=== PATIENT | female | born 1965 | race Caucasian/White ===

== ENCOUNTER 2016-06-09 10:23 | Emergency (ER) | payer OTHER ==
[2016-06-09 10:52] VITALS: BP 144/100
--- NOTE | 2016-06-09 11:46 | UC ---
UC General HPI - HPI Summary HPI Summary: 51 y/o female c/o right sided ear pain and decreased hearing, cough with frothy foul smelling sputum, fatigue, diarrhea with watery stools occurring at least once an hour. - History of Current Complaint Chief Complaint: UCRespiratory Stated Complaint: SORE THROAT CONGESTION VOMITING DIARRHEA Time Seen by Provider: 06/09/16 11:29 Hx Obtained From: Patient Onset/Duration: Gradual Onset Associated Signs & Symptoms: Positive: Diarrhea. Negative: Abdominal Pain, Fever, Headache - Allergy/Home Medications Allergies/Adverse Reactions: Allergies Allergy/AdvReac Type Severity Reaction Status Date / Time Varenicline [From Chantix] Allergy Anaphylatic Verified 06/09/16 10:52 Shock PMH/Surg Hx/FS Hx/Imm Hx Previously Healthy: Yes Endocrine History Of: Denies: Diabetes, Thyroid Disease Cardiovascular History Of: Reports: Hypertension Denies: Cardiac Disorders, Pacemaker/ICD Respiratory History Of: Denies: COPD, Asthma GI/ History Of: Denies: Gastroesophageal Reflux, Ulcer, Renal Disease Neurological History Of: Denies: CVA, Dementia, Seizures Psychological History Of: Reports: Depression Cancer History Of: Denies: Breast Cancer Other History Of: Negative For: Anticoagulant Therapy - Surgical History Surgical History: Yes Surgery Procedure, Year, and Place: tubal ligation 1995 - Family History Known Family History: Positive: Other - positive for depression - Social History Occupation: Employed Full-time Lives: With Family Alcohol Use: Rare Alcohol Amount: hx etoh, drank 3 beers today Substance Use Type: Sedatives Substance Use Comment - Amount & Last Used: unknown amt of ativan, trazodone, and klonipin Smoking Status (MU): Current Every Day Smoker Type: Cigarettes Amount Used/How Often: 1 PPD Have You Smoked in the Last Year: Yes - current smoker, smoked in last 7 days Household Exposure Type: Cigarettes - Immunization History Most Recent Influenza Vaccination: unable to recall Most Recent Tetanus Shot: unable to recall Most Recent Pneumonia Vaccination: NA Review of Systems Constitutional: Fatigue Skin: Negative Eyes: Other - Right ear discomfort ENT: Sore Throat - r/t post-nasal drip, Ear Ache - Right side, Nasal Discharge Respiratory: Cough Cardiovascular: Negative Gastrointestinal: Diarrhea - Watery stools experiencing at least once an hour Genitourinary: Negative Motor: Negative Neurovascular: Negative Musculoskeletal: Negative Neurological: Negative Psychological: Negative All Other Systems Reviewed And Are Negative: Yes Physical Exam Triage Information Reviewed: Yes Appearance: Well-Appearing, No Pain Distress, Well-Nourished Vital Signs: Initial Vital Signs Temp 98.0 F 06/09/16 10:45 Pulse 80 06/09/16 10:45 Resp 20 06/09/16 10:45 BP 144/100 06/09/16 10:45 Pulse Ox 100 06/09/16 10:45 Vital Signs Reviewed: Yes Eye Exam: Normal Eyes: Positive: Conjunctiva Clear ENT: Positive: Pharynx normal, Nasal drainage, TMs normal - Scarring on the right TM, Other: - MM dry. Negative: Nasal congestion Dental Exam: Normal Dental: Negative: Cervical Lymphadenopathy Neck: Positive: Supple, Nontender, No Lymphadenopathy Respiratory: Positive: Chest non-tender, Lungs clear, Normal breath sounds, No respiratory distress, No accessory muscle use Cardiovascular: Positive: RRR, No Murmur, Pulses Normal Abdominal Exam: Normal Abdomen Description: Positive: Nontender Bowel Sounds: Positive: Hyperactive Musculoskeletal: Positive: Strength Intact, ROM Intact Neurological: Positive: Alert, Muscle Tone Normal Psychological Exam: Normal Skin Exam: Normal Course/Dx - Differential Dx - Multi-Symptom Provider Diagnoses: Upper respiratory infection. Diarrhea. dehydration Discharge - Discharge Plan Condition: Stable Disposition: HOME Patient Education Materials: Upper Respiratory Infection (ED) Forms: *Work Release Referrals: [facility] [facility] [Outside] Ruben Lopez MD [Primary Care Provider] - 4 Days Additional Instructions: Follow up with Primary care provider by the end of the week for symptom check Collect stool kit for examination
== END 2016-06-09 12:15 | disposition home or self-care (01) ==
LOC: UCEAST 10:23
DX: J06.9 Acute upper respiratory infection, unspecified (principal); R19.7 Diarrhea, unspecified; E86.0 Dehydration; Z88.8 Allergy status to other drugs, medicaments and biological substances; F17.210 Nicotine dependence, cigarettes, uncomplicated
CPT/HCPCS: 99211; G0463

== ENCOUNTER 2017-06-16 19:17 | Emergency (ER) | payer OTHER ==
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
--- OUTSIDE RECORDS SUMMARY | 2017-06-16 20:04 | XMS REPORT ---
:1965 External Reference #:[id number] Author Organization [facility] Address [address] [place] [address] Phone [phone] Care Team Providers Name Role Phone Josephine Reagan M.D. 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 Primary Care Physician Unavailable Payers Type Date Identification Numbers Payment Provider Subscriber Medicaid Policy Number: [id number] [facility] Silvia Greer PayID: [id number] [address] [address] [place] [address] Problems Date Description Provider Status Onset: 05/21/2017 [...] Reaction Status Severity Comments 05/21/2017 Prednisone active 06/16/2017 Varenicline heart palpitations active Medications Medication Date Status Form Strength Qnty SIG Indications Ordering Provider Doxycycline 06/16/ Active Tablets 100mg 20tabs 1 by mouth R05 Deanna Hyclate 2018 twice a [facility], 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 Oxybutynin 05/21/ Active Tablets ER 5mg 30tabs 1 by mouth Josephine Chloride ER 2018 24HR every day [place], with 10mg M.D. tab Butalbital/As 05/21/ Active Capsules 50-325-40- 60caps 1 tab Josephine pirin/Caffein 2018 30mg twice a [place], e/Codeine day as M.D. needed for headache mdd 2 Effexor XR / Active Caps ER 150mg 2 by mouth Unknown 0000 24HR every day Trazodone HCL / Active Tablets 100mg take 2 Unknown 0000 tablets by mouth at bedtime Seroquel / Active Tablets 25mg take 1 Unknown 0000 [...] 90tabs 1 by mouth Josephine Chloride ER 2018 - 24HR twice a [place], 05/21/ day M.D. 2018 Vital Signs Date Vital Result Comment 06/16/2017 BP Systolic 126 mmHg BP Diastolic 78 mmHg Heart Rate 72 /min Body Temperature 96.6 F Respiratory Rate 16 /min Height 63.5 inches 5'3.50" Weight 130.50 lb BMI (Body Mass Index) 22.8 kg/m2 05/21/2017 BP Systolic 118 mmHg BP Diastolic 72 mmHg Heart Rate 80 /min Body Temperature 98.1 F Respiratory Rate 16 /min Height 63.5 inches 5'3.50" Weight 129.00 lb BMI (Body Mass Index) 22.5 kg/m2 Results Test Date Test Result H/L Range Note CBC Electronic ([facility] New) 06/16/2017 WBC 12.89 High 4.0-10.0 RBC 4.34 3.93-6.0 Hemoglobin ([facility]/CTX) 14.6 g/dL 12.0-17.0 Hematocrit ([facility]) 41.9 % 35.0-50.0 Mean Corpuscular Vol 96.5 fL High 80-95 Mean Corpuscular Hemoglobin 33.6 pg High 25.6-32.2 Mean Corpuscular Hemo Concen 34.8 g/dL 32.2-36.0 Platelets 350 10^3/ul 163-400 RDW-CV 13.0 11.6-14.4 Mean Platelet Volume 9.0 fL Low 9.4-12.4 Absolute Neutrophils BLD 6.72 High 1.56-6.13 Absolute Lymphocytes 4.38 High 1.18-3.74 Absolute Monocytes BLD Auto 1.33 High 0.24-0.82 Absolute Eos Blood 0.39 0.04-0.54 Absolute Basophils 0.03 0.01-0.08 Neutrophil % 52.2 34.0-70.0 Lymph% 34.0 % 20.0-52.0 Monocytes % 10.3 % 5.0-12.0 Eos % 3.0 % 0.7-7.0 Basophil% 0.2 % 0.1-1.2 Comprehensive Metabolic Prof 05/21/2017 Sodium 127 mEq/L Low 134-149 1 Potassium 4.4 mEq/L 3.6-5.5 Chloride 94 mEq/L 94-112 Carbon Dioxide 29 mEq/L 21-32 Glucose 104 mg/dL 70-105 BUN 5 mg/dL Low 6-26 2 Creatinine 0.6 mg/dL 0.6-1.4 BUN/Creat Ratio 8.3 CALC 8.0-36.0 Calcium 10.0 mg/dL 8.6-10.2 Total Protein 6.9 g/dL 6.4-8.3 Albumin 4.4 g/dL 3.8-5.5 Globulin 2.5 g/dL 2.0-4.8 A/G Ratio 1.8 CALC 0.6-2.3 Alk. Phosphatase 82 U/L 30-110 Alt (SGPT) 19 U/L 7-35 Ast (Sgot) 16 U/L 5-34 Total Bilirubin 0.3 mg/dL 0.2-1.3 GFR Non- >60 ml/min/1.73m^ >=60 GFR >60 ml/min/1.73m^ >=60 Lipid Profile 05/21/2017 Cholesterol 256 mg/dL High 120-200 Triglycerides 93 mg/dL 30-200 HDL Cholesterol 65 mg/dL 30-85 LDL (Calculated) 172 CALC High 0-129 VLDL Cholesterol 19 mg/dL 0-50 HDL Risk Factor 3.9 CALC 0.0-4.4 Laboratory test finding 05/21/2017 TSH 1.59 mIU/L 0.50-6.00 Vitamin B-12 344 pg/mL 230-1050 Vitamin D25 20 Low 30-100 CBC Electronic a 05/21/2017 WBC 11.4 x10^3/UL High 4.0-10.0 RBC 4.25 x10^6/UL 3.93-6.00 HGB 13.9 g/dL 12.0-17.0 HCT 40 % 35-50 MCV 94.8 fL 80.0-95.0 MCH 32.7 pg High 25.6-32.2 MCHC 34.5 g/dL 32.2-36.0 RDW-CV 12.8 % 11.6-14.4 PLT 354 x10^3/UL 163-400 MPV 9.3 fL Low 9.4-12.4 Connor# 7.47 x10^3/UL High 1.56-6.13 Lymph# 2.81 x10^3/UL 1.18-3.74 Dolores# 0.70 x10^3/UL 0.24-0.82 Eos # 0.4 x10^3/UL 0.0-0.5 Baso # 0.02 x10^3/UL 0.01-0.08 Connor% 65.3 % 34.0-70.0 Lymph % 24.6 % 20.0-52.0 Dolores% 6.1 % 5.0-12.0 Eos% 3.8 % 0.7-7.0 Baso% 0.2 % 0.1-1.2 Ua - Non Micro ([facility]) 05/21/2017 Appearance clear Color yellow Glucose, Urine ([facility]) neg Bilirubin neg Ketones neg SP Grav <1.005 Blood neg PH 6.5 Protein neg Urobil 0.2 Nitrite neg Leukocytes ([facility]) neg 1 RESULTS VERIFIED BY REPEAT ANALYSIS 2 RESULTS VERIFIED BY REPEAT ANALYSIS Procedures Date CPT Code Description Status 03/30/2016 Colonoscopy Completed Encounters Type Date Location Provider CPT E/M Dx Office Visit 05/21/2017 10:40a Main Office Josephine Reagan M.D. [id number] Z00.00 F43.10 N39.3 I10 E78.5 M25.549 G43.009 M79.1 Plan of Care Future Appointment(s):06/23/2017 9:00 am - BRADEN Constantino at [facility] Oztpxj6508/20/2017 8:20 am - Josephine Reagan M.D. at Main Klgnlk0406/16/2017 - VELMA ConstantinoPR05 CoughNew Medication:Doxycycline Hyclate 100 mgR53.81 Other malaiseComments:The patient was instructed to call or return to the office if there was no improvement .R68.83 Chills (without fever)AllComments:~B_ ~U_Medication Management~b_~u_ Patient Understands medications he 's taking? Yes No Are there Barriers to Adherence? Yes No Has the patient been asked about herbal supplements and therapies, and OTC meds? Yes No ~B_~U_Care Plan~b_~u_1. Patient has been queried aboutpatient's goals/ preferences and functional/lifestyle goals at relevant visits. If relevant, describe: feel better2. Treatment goals as explained to the patient: above3. Are there barriers to meetingtreatment goals? Yes No If Yes, please describe:4. Self-Management goals as described to the patient: Yes No
[2017-06-16 20:07] LABS: ABS Basophils 0.1 10^3/ul (0-0.2); ABS Eosinophils 0.3 10^3/ul (0-0.6); ABS Lymphocytes 2.7 10^3/ul (1.0-4.8); ABS Monocytes 0.4 10^3/ul (0-0.8); ABS Nucleated RBC 0 10^3/ul; Eosinophil % 2.3 % (0-6); Hematocrit 42 % (35-47); Hemoglobin 14.2 g/dl (12.0-16.0); Lymphocyte % 23.5 % (25-47); Mean Corpuscular HGB Conc 34 g/dl (31-36); Mean Corpuscular Hemoglobin 33 pg (27-31); Mean Corpuscular Volume 98 fL (80-97); Mean Platelet Volume 7 um3 (7.4-10.4); Nucleated Red Blood Cells % 0; Platelet Count 295 10^3/ul (150-450); Red Blood Count 4.27 10^6/ul (4.0-5.4); Red Cell Distribution Width 14 % (10.5-15); White Blood Count 11.5 10^3/ul (3.5-10.8)
[2017-06-16 20:25] LABS: EGFR Non-African American 123.4 (>60)
[2017-06-16 21:19] LABS: Urine Appearance Clear; Urine Blood Negative (Negative); Urine Color Colorless; Urine Ketones Negative (Negative); Urine Protein Negative (Negative); Urine Specific Gravity 1.001 (1.010-1.030); Urine Urobilinogen Negative (Negative)
[2017-06-16] MEDS ORDERED: NS 0.9% 1000 ML* 1,000 ML IV ONE (22:37)
[2017-06-16] MEDS ORDERED: Potassium Chlor TAB* 20 MEQ TAB.ER PO ONE (22:40)
[2017-06-16 22:49] VITALS: BP 108/78
--- NOTE | 2017-06-16 22:56 | ED ---
Syncope/Near Syncope - HPI Summary HPI Summary: 30th erythema present to the ED brought in by ambulance accompanied by daughter with complaints of being diagnosed with pneumonia earlier at her primary care doctor office and then having an episode of syncope while at home. Syncope was witnessed by her daughter who caught her before hitting the floor. Syncopal episode lasted a couple of seconds. Patient was sitting and got up to go to the bathroom. Denies any headache chest pain or trouble breathing. Has been short of breath with coughing due to patient's illness that has been ongoing for the past 2 weeks. Admits to fever chills intermittently. Denies any nausea vomiting by pain. Has not taken any medications today. Admits to cigarette use. Did have some alcohol prior to syncopal episode. Denies other drug use. - History Of Current Complaint Chief Complaint: EDSyncope Time Seen by Provider: 06/16/17 19:30 Hx Obtained From: Patient Onset/Duration: Sudden Onset, Lasting Minutes, Resolved Timing: Constant Context: Witnessed Activity At Onset: Exertion - Sitting to standing Associated Head Trauma: No Aggravating Factor(s): Nothing Alleviating Factor(s): Spontaneous Resolution Associated Signs And Symptoms: Negative - Allergies/Home Medications Allergies/Adverse Reactions: Allergies Allergy/AdvReac Type Severity Reaction Status Date / Time prednisone Allergy Blisters Verified 06/16/17 19:26 [email or web address] [From Chantix] Allergy Palpitation Verified 06/16/17 20:31 s Home Medications: Home Medications QUEtiapine TAB* [SEROquel TAB*] 150 mg PO BEDTIME 06/16/17 [History Confirmed ] PMH/Surg Hx/FS Hx/Imm Hx Endocrine/Hematology History: Denies: Hx Anticoagulant Therapy, Hx Diabetes, Hx Thyroid Disease Cardiovascular History: Reports: Hx Hypertension Denies: Hx Pacemaker/ICD Respiratory History: Denies: Hx Asthma, Hx Chronic Obstructive Pulmonary Disease (COPD) GI History: Denies: Hx Ulcer History: Denies: Hx Renal Disease Musculoskeletal History: Denies: Hx Osteoporosis Neurological History: Denies: Hx Dementia, Hx Seizures Psychiatric History: Reports: Hx Depression Denies: Hx of Violent Episodes Against Others, Hx Substance Abuse - Surgical History Surgery Procedure, Year, and Place: tubal ligation 1995 - Immunization History Date of Tetanus Vaccine: UNKNOWN Date of Influenza Vaccine: NONE Immunizations Up to Date: Yes Infectious Disease History: No Infectious Disease History: Denies: Hx Hepatitis, Hx Human Immunodeficiency Virus (HIV), Traveled Outside the [place] in Last 30 Days - Family History Known Family History: Positive: Other - positive for depression - Social History Alcohol Use: Daily Alcohol Amount: 2-3 of the "tall beers" Hx Substance Use: No Substance 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 Substance Use Comment - Amount & Last Used: unknown amt of ativan, trazodone, and klonipin Hx Tobacco Use: Yes Smoking Status (MU): Heavy Every Day Tobacco Smoker Type: Cigarettes Amount Used/How Often: 1 PPD Have You Smoked in the Last Year: Yes - current smoker, smoked in last 7 days Review of Systems Positive: Fever, Chills, Fatigue Cardiovascular: Negative Positive: Shortness Of Breath, Cough Gastrointestinal: Negative Musculoskeletal: Negative Skin: Negative Neurological: Negative All Other Systems Reviewed And Are Negative: Yes Physical Exam Triage Information Reviewed: Yes Vital Signs On Initial Exam: Initial Vitals Temp Pulse Resp BP Pulse Ox 97.3 F 82 16 131/88 97 06/16/17 19:24 06/16/17 19:24 06/16/17 19:24 06/16/17 19:24 06/16/17 19:24 Vital Signs Reviewed: Yes Appearance: Positive: No Pain Distress, Well-Nourished, Ill-Appearing Skin: Positive: Warm, Skin Color Reflects Adequate Perfusion, Dry. Negative: Cold, Numb, Cyanosis @, Jaundiced, Pale, Erythema @ Head/Face: Positive: Normal Head/Face Inspection. Negative: Scalp Eyes: Positive: Normal, EOMI, RENAE, Conjunctiva Clear ENT: Positive: Normal ENT inspection, Hearing grossly normal, Pharynx normal, TMs normal, Uvula midline. Negative: Nasal congestion, Nasal drainage, Tonsillar swelling, Tonsillar exudate Neck: Positive: Supple, Nontender, No Lymphadenopathy Respiratory/Lung Sounds: Positive: Clear to Auscultation, Breath Sounds Present , Decreased Breath Sounds - diffuse, Wheezes - diffuse. Negative: Rales, Rhonchi Cardiovascular: Positive: Normal, RRR, Pulses are Symmetrical in both Upper and Lower Extremities. Negative: Murmur, Rub Abdomen Description: Positive: Nontender, Soft Bowel Sounds: Positive: Present Musculoskeletal: Positive: Normal, Strength/ROM Intact Neurological: Positive: Normal, Sensory/Motor Intact, Alert, Oriented to Person Place, Time, NV Bundle Intact Distally, Normal Gait Diagnostics - Vital Signs Vital Signs Temp Pulse Resp BP Pulse Ox 06/16/17 22:30 97 18 108/78 95 06/16/17 22:06 94 18 114/78 96 06/16/17 22:00 81 15 87/56 94 06/16/17 21:41 102 18 113/63 94 06/16/17 21:31 99 19 95 06/16/17 21:03 85 15 93/65 95 06/16/17 21:00 84 5 86/56 95 06/16/17 20:30 79 15 101/61 97 06/16/17 20:02 80 16 100/58 96 06/16/17 20:00 78 14 95 06/16/17 19:30 79 15 118/83 95 06/16/17 19:28 80 97 06/16/17 19:26 131/88 06/16/17 19:24 97.3 F 82 16 131/88 97 - Laboratory Lab Results: Lab Results 06/16/17 06/16/17 06/16/17 Range/Units 20:00 20:00 20:00 WBC 11.5 H (3.5-10.8) 10^3/ul RBC 4.27 (4.0-5.4) 10^6/ul Hgb 14.2 (12.0-16.0) g/dl Hct 42 (35-47) % MCV 98 H (80-97) fL MCH 33 H (27-31) pg MCHC 34 (31-36) g/dl RDW 14 (10.5-15) % Plt Count 295 (150-450) 10^3/ul MPV 7 L (7.4-10.4) um3 Neut % (Auto) 69.7 (38-83) % Lymph % (Auto) 23.5 L (25-47) % [place] % (Auto) 3.8 (0-7) % Eos % (Auto) 2.3 (0-6) % Baso % (Auto) 0.7 (0-2) % Absolute Neuts (auto) 8.0 H (1.5-7.7) 10^3/ul Absolute Lymphs (auto) 2.7 (1.0-4.8) 10^3/ul Absolute Monos (auto) 0.4 (0-0.8) 10^3/ul Absolute Eos (auto) 0.3 (0-0.6) 10^3/ul Absolute Basos (auto) 0.1 (0-0.2) 10^3/ul Absolute Nucleated RBC 0 10^3/ul Nucleated RBC % 0 Sodium 132 L (133-145) mmol/L Potassium 2.9 L (3.5-5.0) mmol/L Chloride 101 (101-111) mmol/L Carbon Dioxide 22 (22-32) mmol/L Anion Gap 9 (2-11) mmol/L BUN 5 L (6-24) mg/dL Creatinine 0.52 (0.51-0.95) mg/dL Est GFR ( Amer) 158.6 (>60) Est GFR (Non-Af Amer) 123.4 (>60) BUN/Creatinine Ratio 9.6 (8-20) Glucose 172 H (70-100) mg/dL Lactic Acid 2.7 H* (0.5-2.0) mmol/L Calcium 9.2 (8.6-10.3) mg/dL Magnesium 2.2 (1.9-2.7) mg/dL Total Bilirubin 0.20 (0.2-1.0) mg/dL AST 23 (13-39) U/L ALT 23 (7-52) U/L Alkaline Phosphatase 68 (34-104) U/L Troponin I 0.00 (<0.04) ng/mL Total Protein 6.7 (6.4-8.9) g/dL Albumin 3.9 (3.2-5.2) g/dL Globulin 2.8 (2-4) g/dL Albumin/Globulin Ratio 1.4 (1-3) TSH 0.97 (0.34-5.60) mcIU/mL Urine Color Urine Appearance Urine pH (5-9) Ur Specific [place] (1.010-1.030) Urine Protein (Negative) Urine Ketones (Negative) Urine Blood (Negative) Urine Nitrate (Negative) Urine Bilirubin (Negative) Urine Urobilinogen (Negative) Ur Leukocyte Esterase (Negative) Urine Glucose (Negative) 06/16/17 Range/Units 21:09 WBC (3.5-10.8) 10^3/ul RBC (4.0-5.4) 10^6/ul Hgb (12.0-16.0) g/dl Hct (35-47) % MCV (80-97) fL MCH (27-31) pg MCHC (31-36) g/dl RDW (10.5-15) % Plt Count (150-450) 10^3/ul MPV (7.4-10.4) um3 Neut % (Auto) (38-83) % Lymph % (Auto) (25-47) % [place] % (Auto) (0-7) % Eos % (Auto) (0-6) % Baso % (Auto) (0-2) % Absolute Neuts (auto) (1.5-7.7) 10^3/ul Absolute Lymphs (auto) (1.0-4.8) 10^3/ul Absolute Monos (auto) (0-0.8) 10^3/ul Absolute Eos (auto) (0-0.6) 10^3/ul Absolute Basos (auto) (0-0.2) 10^3/ul Absolute Nucleated RBC 10^3/ul Nucleated RBC % Sodium (133-145) mmol/L Potassium (3.5-5.0) mmol/L Chloride (101-111) mmol/L Carbon Dioxide (22-32) mmol/L Anion Gap (2-11) mmol/L BUN (6-24) mg/dL Creatinine (0.51-0.95) mg/dL Est GFR ( Amer) (>60) Est GFR (Non-Af Amer) (>60) BUN/Creatinine Ratio (8-20) Glucose (70-100) mg/dL Lactic Acid (0.5-2.0) mmol/L Calcium (8.6-10.3) mg/dL Magnesium (1.9-2.7) mg/dL Total Bilirubin (0.2-1.0) mg/dL AST (13-39) U/L ALT (7-52) U/L Alkaline Phosphatase (34-104) U/L Troponin I (<0.04) ng/mL Total Protein (6.4-8.9) g/dL Albumin (3.2-5.2) g/dL Globulin (2-4) g/dL Albumin/Globulin Ratio (1-3) TSH (0.34-5.60) mcIU/mL Urine Color Colorless Urine Appearance Clear Urine pH 5.0 (5-9) Ur Specific [place] 1.001 L (1.010-1.030) Urine Protein Negative (Negative) Urine Ketones Negative (Negative) Urine Blood Negative (Negative) Urine Nitrate Negative (Negative) Urine Bilirubin Negative (Negative) Urine Urobilinogen Negative (Negative) Ur Leukocyte Esterase Negative (Negative) Urine Glucose 1+(50 mg/dl) A (Negative) Result Diagrams: 06/16/17 20:00 06/16/17 20:00 Lab Statement: Any lab studies that have been ordered have been reviewed, and results considered in the medical decision making process. - Radiology chest Xray Interpretation: No Acute Changes - negative chest xray Radiology Interpretation Completed By: ED Physician - EKG EKG Cardiac Rate: NL EKG Rhythm: Sinus Rhythm ST Segment: Normal Ectopy: None EKG Interpretation: NSR, borderline prolonged WI interval, No STEMI EKG Comparison: No Significant Change Re-Evaluation - Re-Evaluation First Eval Re-Evaluation Time: 23:47 Change: Improved - waiting on repeat labs and breathing treatment, patient feeling better ate and drank. Second Eval Re-Evaluation Time: 00:10 Change: Improved - had relief after breathing treatment, patient updated on labs and imaging. was recommended to be observed overnight and admitted to hospitalist service due to syncope, labs and symptoms, patient refusing and wants to be signed out ama. daughter is present Course/Dx Course Of Treatment: Labs, troponin, EKG, chest x-ray obtained. EKG normal sinus rhythm. chest x-ray read by Dr. Arcos negative. Labs slight elevation of white blood cell count. Negative troponin. Negative urinalysis. Patient was hypokalemic given oral potassium while in ED. Initial lactic acid 2.7 was repeated and was 2.6. Serum alcohol 178. given 1L normal saline, attempted second however patient refused and wanted IV removed. Blood glucose was also elevated at 172. Attempted to obtian blood culture, patient refused. Given a breathing treatment while in ED patient had relief. Spoke with doctor Arcos who agrees with plan to be observed overnight due to syncopal episode and labs. patient however refused and wanted to be signed out AMA. Patient patient was educated about these findings and how her condition could worsen. Understands the risks of signing out AMA. Patient would not take recommendation. By the time of disposition was taking place patient's serum alcohol was less than 50 and she was able to make decisions for herself. - Diagnoses Differential Diagnosis/HQI/PQRI: Positive: Vasovagal Episode, Other - syncope, bronchitis, hypokalemia Provider Diagnoses: Syncope, Bronchitis, Hypokalemia, Hyperglycemia - Physician Notifications Discussed Care of Patient With: Dr Arcos Discharge - Sign-Out/Discharge Documenting (check all that apply): Discharge - Discharge Plan Condition: Stable Disposition: AGAINST MEDICAL ADVICE Patient Education Materials: Hypokalemia (ED), Nondiabetic Hyperglycemia (ED), Syncope (DC), Acute Bronchitis (ED) Referrals: Ruben Lopez MD [Primary Care Provider] - 1 Day Additional Instructions: follow up with pcp tomorrow. return to ed immediately any new or worsening symptoms. - Billing Disposition and Condition Condition: STABLE Disposition: AMA
[2017-06-16] MEDS ORDERED: Albuterol/Ipratropium NEB.SOL* Albuterol 2.5 MG/Ipratropium 0.5 MG 3 ML INH ONE (23:47)
--- NOTE | 2017-06-17 07:18 | RAD ---
INDICATION: Cough evaluate for pneumonia. COMPARISON: Comparison is made with a prior study from February 23, 2012. TECHNIQUE: Dual-energy PA and lateral views of the chest were obtained. FINDINGS: The heart is within normal limits in size. Mediastinal and hilar contours appear within normal limits. There is a small area of increased density in the right upper lobe which is unchanged from the prior exam most consistent with scarring. The lungs are otherwise clear. No pleural effusion is seen. IMPRESSION: NO EVIDENCE FOR ACTIVE CARDIOPULMONARY DISEASE.
== END 2017-06-17 00:59 | disposition left against medical advice (07) ==
LOC: ED 19:17
DX: R55 Syncope and collapse (principal); J40 Bronchitis, not specified as acute or chronic; E87.6 Hypokalemia; R73.9 Hyperglycemia, unspecified; Z32.02 Encounter for pregnancy test, result negative; I10 Essential (primary) hypertension; F32.9 Major depressive disorder, single episode, unspecified; Z88.8 Allergy status to other drugs, medicaments and biological substances; F17.210 Nicotine dependence, cigarettes, uncomplicated
CPT/HCPCS: 36415; 71046; 80053; 80320; 81003; 83605; 83735; 84443; 84484; 84702; 85025; 87040; 93005; 94640; 96360; 99285; A9270-GY; G0480